=== PATIENT | female | born 1970 | race Caucasian/White ===

== ENCOUNTER 2020-09-13 15:03 | Outpatient (REF) | payer OTHER, SELFPAY ==
--- NOTE | 2020-09-13 16:42 | MHC.AU.P13 ---
Hearing Aid Evaluation- Binaural Date of Visit: 09/13/20 Description of Hearing: Mild sloping to severe sensorineural hearing loss bilaterally. Summary: Ms. George reports that she has had hearing loss since childhood. She last wore hearing aids ~20 years ago. She notes that she has not had great experiences with hearing aids in the past and has guarded expectations. She notes that she has been having more difficulty communicating since COVID began and people started wearing masks. Ms. George experiences the most difficulties hearing at work. Discussed options. Interested in SCAR style aids. Hearing Instrument Selection: Right Ear: Collection Clerk: Phonak Model: Synthonicseo M70-13T Battery Size: 13 Color: P3- [place] [employer]Prost[employer] Practitioner: Size 1 M Left Ear: Collection Clerk: Phonak Model: Synthonicseo M70-13T Battery Size: 13 Color: P3-[place] [employer]Prost[employer] Practitioner: Size 1M Recommendations: Recommendations: Fitting will be scheduled when all materials have arrived. Quote will be sent to [facility] [place] [facility]. Aids will be ordered once approval is received from [facility]. Diagnosis Code(s): Primary Diagnosis: H90.3 Bilateral Sensorineural Hearing Loss Services Performed: Hearing Aid Evaluation and Earmold: Hearing Aid Evaluation- Binaural Signature: Provider: Jason Bedolla, CCC-A
== END 2020-09-13 15:04 | disposition home or self-care (01) ==
LOC: HO.HAP 15:03
PROVIDERS: PCP Pediatrics; Referring Provider Otolaryngology; Visit Provider Pediatrics
DX: Z46.1 Encounter for fitting and adjustment of hearing aid (principal)
CPT/HCPCS: 92591

== ENCOUNTER 2020-10-18 15:15 | Outpatient (REF) | payer OTHER, SELFPAY | END 2020-10-18 15:16 | disposition home or self-care (01) | LOC: HO.HAP 15:15 | PROVIDERS: PCP Pediatrics; Referring Provider Pediatrics; Visit Provider Pediatrics | DX: H90.5 Unspecified sensorineural hearing loss (principal); Z46.1 Encounter for fitting and adjustment of hearing aid | CPT/HCPCS: V5011; V5020; V5160; V5261; V5266 ==

== ENCOUNTER 2020-11-01 11:34 | Outpatient (REF) | payer SELFPAY | END 2020-11-01 11:35 | disposition home or self-care (01) | LOC: HO.HAP 11:34 | PROVIDERS: Visit Provider Pediatrics | DX: Z13.89 Encounter for screening for other disorder (principal) ==

== ENCOUNTER 2020-12-19 16:17 | Outpatient (REF) | payer SELFPAY | END 2020-12-19 16:18 | disposition home or self-care (01) | LOC: HO.HAP 16:17 | PROVIDERS: Visit Provider Pediatrics | DX: Z46.1 Encounter for fitting and adjustment of hearing aid (principal) | CPT/HCPCS: V5266 ==

== ENCOUNTER 2021-06-29 16:41 | Outpatient (REF) | payer SELFPAY | END 2021-06-29 16:42 | disposition home or self-care (01) | LOC: HO.HAP 16:41 | PROVIDERS: Visit Provider Pediatrics | DX: H90.3 Sensorineural hearing loss, bilateral (principal) | CPT/HCPCS: V5266 ==

== ENCOUNTER 2021-12-05 11:02 | Outpatient (REF) | payer SELFPAY | END 2021-12-05 11:03 | disposition home or self-care (01) | LOC: HO.HAP 11:02 | PROVIDERS: Visit Provider Pediatrics | DX: Z46.1 Encounter for fitting and adjustment of hearing aid (principal); H90.5 Unspecified sensorineural hearing loss | CPT/HCPCS: V5266 ==

== ENCOUNTER 2022-03-05 15:45 | Outpatient (REF) | payer SELFPAY | END 2022-03-05 15:46 | disposition home or self-care (01) | LOC: HO.HAP 15:45 | PROVIDERS: Visit Provider Pediatrics | DX: Z46.1 Encounter for fitting and adjustment of hearing aid (principal); H90.3 Sensorineural hearing loss, bilateral | CPT/HCPCS: V5267 ==

== ENCOUNTER 2023-12-10 13:44 | Outpatient (REF) | payer SELFPAY | END 2023-12-10 13:45 | disposition home or self-care (01) | LOC: HO.HAP 13:44 | PROVIDERS: Visit Provider Pediatrics | DX: Z46.1 Encounter for fitting and adjustment of hearing aid (principal); H90.3 Sensorineural hearing loss, bilateral | CPT/HCPCS: V5266; V5267 ==